=== PATIENT | male | born 1975 | race Caucasian/White ===

== ENCOUNTER 2018-09-28 06:41 | Day surgery (SDC) | payer OTHER ==
[~2018-09-28 06:41] MED LIST: Lactated Ringers 1,000 ML IV SCH
[2018-09-28] MEDS ORDERED: Propofol 200 MG/20 ML SDV ONE (07:20)
--- NOTE | 2018-09-28 07:47 | PCM.PREANE ---
Preanesthetic Assessment - Anesthesia/Transfusion/Family Hx Anesthesia History: Prior Anesthesia Without Reaction Family History of Anesthesia Reaction: No Transfusion History: No Prior Transfusion(s) - Review of Systems General: No Symptoms Pulmonary: No Symptoms (LI uses CPAP) Cardiovascular: No Symptoms Gastrointestinal: No Symptoms Neurological: No Symptoms Other: Reports: None - Physical Assessment NPO Status Date: 09/27/18 O2 Sat by Pulse Oximetry: 93 Respiratory Rate: 16 Vital Signs: Last Vital Signs Temp 97.0 F 09/28/18 07:02 Pulse 72 09/28/18 07:02 Resp 16 09/28/18 07:02 BP 126/87 09/28/18 07:02 Pulse Ox 93 L 09/28/18 07:02 Height: 5 ft 9 in Weight: 136.985 kg ASA Class: 2 Mental Status: Alert & Oriented x3 Airway Class: Mallampati = 2 Dentition: Reports: Normal Dentition ROM/Head Extension: Full Lungs: Clear to Auscultation, Normal Respiratory Effort Cardiovascular: Regular Rate, Regular Rhythm - Allergies Allergies/Adverse Reactions: Allergies Allergy/AdvReac Type Severity Reaction Status Date / Time naproxen [From Naprosyn] Allergy Cannot Verified 09/25/18 16:08 Remember cats Allergy Difficulty Uncoded 09/25/18 16:08 Breathing - Blood Blood Available: No - Anesthesia Plan Pre-Op Medication Ordered: None - Acknowledgements Anesthesia Type Planned: General Anesthesia Pt an Appropriate Candidate for the Planned Anesthesia: Yes Alternatives and Risks of Anesthesia Discussed w Pt/Guardian: Yes Pt/Guardian Understands and Agrees with Anesthesia Plan: Yes Additional Comments: anes prob list: MO. LI, PLAN: tiva PreAnesthesia Questionnaire Respiratory History: Reports: Asthma, Sleep Apnea Other Respiratory History: uses CPAP, has allergy induced asthma (cats) Gastrointestinal History: Reports: GERD Musculoskeletal History: Reports: Back Pain, Chronic Endocrine/Metabolic History: Reports: Obesity/BMI 30+ - Past Surgical History Head Surgeries/Procedures: Reports: None HEENT Surgical History: Reports: Other (See Below) Other HEENT Surgeries/Procedures: has 1 lower dental implant GI Surgical History: Reports: Other (See Below) Other GI Surgeries/Procedures: Umbilical Hernia repair Male Surgical History: Reports: Vasectomy - SUBSTANCE USE Smoking Status *Q: Current Every Day Smoker Tobacco Use Within Last Twelve Months: Smokeless Tobacco Days Per Week of Alcohol Use: 3 Recreational Drug Use History: No - HOME MEDS Home Medications: Home Meds . [No Known Home Meds] 09/25/18 [History] - CURRENT (IN HOUSE) MEDS Current Meds: Current Medications Lactated Ringer's (Ringers, Lactated) 1,000 mls @ 125 mls/hr IV ASDIRECTED JESUS Last Admin: 09/28/18 07:12 Dose: 125 mls/hr Discontinued Medications Lidocaine HCl (Xylocaine-Mpf 1%) Confirm Administered Dose 5 mls @ as directed .ROUTE .STK-MED ONE Stop: 09/28/18 07:23 Propofol (Diprivan 20 Ml) Confirm Administered Dose 400 mg .ROUTE .STK-MED ONE Stop: 09/28/18 07:21
[2018-09-28] MEDS ORDERED: Midazolam 1 MG/ML 2 ML SDV ONE (07:54)
--- NOTE | 2018-09-28 08:33 | PCM.OPNOTE ---
- General Post-Op/Procedure Note Date of Surgery/Procedure: 09/28/18 Operative Procedure(s): egd w bx. colonoscopy w snare polypectomy Findings: see dict [id number] Pre Op Diagnosis: rectal bleed and gerd Post-Op Diagnosis: Same Anesthesia Technique: Moderate Sedation Primary Surgeon: Harinder Garcia Pathology: egd w bx colon snare at 90 and 120 when scope goes in and 90, transverse colon, when scope went out, r colon Complications: None Condition: Good
--- NOTE | 2018-09-28 09:16 | PCM48HPAN ---
Post Anesthesia Note - EVALUATION WITHIN 48HRS OF ANESTHETIC Vital Signs in Normal Range: Yes Patient Participated in Evaluation: Yes Respiratory Function Stable: Yes Airway Patent: Yes Cardiovascular Function Stable: Yes Hydration Status Stable: Yes Pain Control Satisfactory: Yes Nausea and Vomiting Control Satisfactory: Yes Mental Status Recovered: Yes Resp Rate: 12
--- NOTE | 2018-09-28 09:16 | PCM.POSTAN ---
POST ANESTHESIA ASSESSMENT - MENTAL STATUS Mental Status: Alert, Oriented - RESPIRATORY Respiratory Status: Respiratory Rate WNL, Airway Patent, O2 Saturation Stable - CARDIOVASCULAR CV Status: Pulse Rate WNL, Blood Pressure Stable - GASTROINTESTINAL GI Status: No Symptoms - POST OP HYDRATION Hydration Status: Adequate & Stable
--- NOTE | 2018-09-28 10:56 | OR ---
SURGEON: Harinder Garcia MD DATE OF PROCEDURE: 09/28/2018 PREOPERATIVE DIAGNOSES: Rectal bleeding and acid reflux. POSTOPERATIVE DIAGNOSES: Esophagogastroduodenoscopy diagnosis is gastric ulcer and colonoscopy diagnoses are colon polyp and diverticulosis. PROCEDURES PERFORMED: Esophagogastroduodenoscopy with biopsy and colonoscopy with snare polypectomy. DESCRIPTION OF PROCEDURE: EGD: The patient was taken to the endoscopy room, and with the STUNNER, Diprivan was administered. A well-lubricated EGD scope was gently inserted through the oropharynx, down the esophagus, passing through the gastroesophageal junction, into the stomach. The mucosa was examined upon the passage. Any etiology will be noted. Once in the stomach, we continued to advance to the distal antrum, passed through the pylorus into the second portion of the duodenum. Again, the mucosa was examined for any abnormality and etiology. The scope was then retrieved back to the stomach and then retroflexed to look at the fundus of the stomach. If a biopsy was indicated, we will biopsy the antrum, body, and gastroesophageal junction. The air will be sucked out while the scope is retrieved to reduce the patient's discomfort. The patient tolerated the procedure well. There were no intraoperative complications. Dr. Garcia was present through the whole procedure. Prior to surgery, a time-out had been called, the patient identified, procedure identified and antibiotic administered. The patient was taken to the endoscopy room. A time out was called, patient identified, and procedure identified. Diprivan was then administrated. Patient went from awake to sleep, hearing doctor talking or door closing is normal. Perineum inspection and digital examination were then performed. A well- lubricated colonoscope was gently inserted through the rectum, advanced past the rectosigmoid junction, the descending colon, splenic flexure, transverse colon, hepatic flexure, ascending colon, arrived to the cecum. Cecum was identified as dictated in the finding. Then the scope was carefully withdrawn while attention was paid to the mucosal surface for any abnormality. Air will be sucked out during the scope withdrawal. At the rectum, retroflexed to examine any rectal diseases, fistula or hemorrhoids. During mucosal examination, abnormality or polyp encountered. Using snare equipment, the abnormality or the polyp was then snared off using electrocautery. The patient tolerated procedure well. There were no intraoperative complications, and Dr. Garcia was present throughout the whole procedure. FINDINGS: EGD findings: 1. The patient is easily sedated with STUNNER and Diprivan, the patient is soundly snoring. 2. Oropharynx and proximal esophagus are free of disease. The GE junction at 40 at distal esophagus shows flame-like salmon-colored change consistent with significant acid reflux. Stomach rugae are normal in appearance and there is no food or bile in the stomach. Antrum has two areas that look like it is ulcerated and with dry blood. Is not a pumping, bleeding ulcer, but it is an ulcer that he has old blood over there and two of them. Very small though, less than 2 mm. Duodenum is grossly normal and scope retrieved back to the stomach. Retroflexed look at the fundus of stomach, there is no hiatal hernia. Biopsy done at antrum and antrum ulcer and body and GE junction at 40 and sucked out the gas while scope pulling out. Colonoscopy findings: 1. The patient is easily sedated with STUNNER and Diprivan, the patient is soundly snoring. 2. Bowel prep is much left to be desirable. Large amount of opaque yellow liquid stool compromised the study. It is so much, with constant irrigation still had problem to get rid of this, and so is a compromised study. Cecum is indicated by ileocecal fold, one-to-one indentation, and appendiceal orifice. Light emittance is not observed because of body habitus. With constant irrigation, mucosa examined. Upon scope pulling out, the patient has three polyps, one in the right colon, two in the transverse colon. They are all under 3 to 4 mm. First one is 90 cm when the scope go in, second one is 120 when the scope go in, the third one is 90 cm when the scope come out. The last one is in the right colon. The first two are in the transverse colon. The patient has only one diverticulum at the transverse colon. No signs or symptoms of diverticulitis. No inflammation, stricture, AV malformation, mass, growth, ulceration, bleeding, none of those. The patient has mild internal hemorrhoids, and in the rectal area, it looked like there is a very small tiny fistula in the buttock area, not in the anal opening. The patient would benefit from a repeat colonoscopy three years from today or earlier, mainly because that the bowel prep is not as good or if the polyp pathology or the clinical situation suggests earlier. O[facility] / CRISTINA /[id number]
== END 2018-09-28 09:13 | disposition home or self-care (01) ==
LOC: MW.SDS 06:41
PROVIDERS: ATTEND Surgery
DX: D12.3 Benign neoplasm of transverse colon (principal); K21.0 Gastro-esophageal reflux disease with esophagitis; K29.50 Unspecified chronic gastritis without bleeding; K62.5 Hemorrhage of anus and rectum; G47.33 Obstructive sleep apnea (adult) (pediatric); E66.9 Obesity, unspecified; Z68.41 Body mass index [BMI] 40.0-44.9, adult; Z86.79 Personal history of other diseases of the circulatory system; Z86.39 Personal history of other endocrine, nutritional and metabolic disease; Z87.891 Personal history of nicotine dependence; Z88.6 Allergy status to analgesic agent; Z91.09 Other allergy status, other than to drugs and biological substances; Z99.89 Dependence on other enabling machines and devices
CPT/HCPCS: 43239; 45385; J2001; J2250; J2704; J7120; 00813; 88305; 88312

== ENCOUNTER 2022-12-26 11:01 | Day surgery (SDC) | payer OTHER ==
[~2022-12-26 11:01] MED LIST changes: +Lidocaine 2% 5 ML SDV ONE; +propofoL 50 ML ONE
[2022-12-26] MEDS ORDERED: Glycopyrrolate 0.2 MG/ML SDV ONE (12:35)
[2022-12-26] MEDS ORDERED: Lactated Ringers 1,000 ML IV SCH (13:15)
== END 2022-12-26 13:30 | disposition home or self-care (01) ==
LOC: MW.SDS 11:01
PROVIDERS: ATTEND Surgery
DX: Z12.11 Encounter for screening for malignant neoplasm of colon (principal); D12.8 Benign neoplasm of rectum; K57.30 Diverticulosis of large intestine without perforation or abscess without bleeding; J45.909 Unspecified asthma, uncomplicated; K21.9 Gastro-esophageal reflux disease without esophagitis; G47.30 Sleep apnea, unspecified; E66.9 Obesity, unspecified; Z80.0 Family history of malignant neoplasm of digestive organs; Z79.899 Other long term (current) drug therapy; Z87.891 Personal history of nicotine dependence; Z78.9 Other specified health status; Z88.8 Allergy status to other drugs, medicaments and biological substances; Z91.010 Allergy to peanuts
CPT/HCPCS: 45380; J2704; J3490; J7120; 00811